=== PATIENT | male | born 2005 | race African-American/Black ===

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

== ENCOUNTER 2023-02-17 11:35 | Emergency (ER) | payer MEDICAID ==
[~2023-02-17] VITALS: Ht 170.2 cm; Wt 73.7 kg
[~2023-02-17 11:35] MED LIST changes: +HYDR-4902 PO; +IBUP-1454 PO; -IBUP600T27 PO; +LEVO500T31 PO; +METR500T PO; -OMEP-263 PO; +OMEP-448 PO
[2023-02-17 11:46] VITALS: BP 108/69
[2023-02-17] MEDS ORDERED: SODIUM CHLORIDE 0.9% 1,000 ML IV ONE (12:00)
[2023-02-17] MEDS ORDERED: PROCHLORPERAZINE EDISYLATE 5 MG/ML 2ML VIAL IV ONE (12:00)
[2023-02-17] MEDS ORDERED: PANT40TA2 PO (12:12)
[2023-02-17 12:15] LABS: Basophils # (auto) 0.1 10 ^3/uL (0-0.2); Hemoglobin 11.7 g/dL (13.5-17.5); Monocytes # (auto) 1.4 10 ^3/uL (0-1.3)
[2023-02-17 12:17] LABS: Basophils % (auto) 0.6 % (0.0-2.0); Eosinophils # (auto) 0.9 10 ^3/uL (0-0.8); Eosinophils % (auto) 5.2 % (0.0-7.0); Hematocrit 36.8 % (41.0-53.0); Lymphocytes # (auto) 1.8 10 ^3/uL (0.4-5.4); Mean Corpuscular Hemoglobin 25.4 pg (28.0-32.0); Mean Corpuscular Hgb Conc. 31.7 g/dL (32.0-36.0); Mean Corpuscular Volume 80.1 fL (80.0-100.0); Neutrophils # (auto) 13.6 10 ^3/uL (1.6-8.6); Neutrophils % (auto) 76.2 % (37.0-80.0); Red Cell Distribution Width 14.1 % (11.8-14.3); White Blood Cell 17.8 10^3/uL (4.4-10.8)
[2023-02-17 12:43] LABS: Albumin 3.8 g/dL (3.4-5.0); Calcium 8.7 mg/dL (8.5-10.1); Potassium 4.1 mmol/L (3.5-5.1)
[2023-02-17 12:46] LABS: BUN/Creatinine Ratio 11.1 (10.0-20.0); Bilirubin, Total 0.3 mg/dL (0.2-1.0); Total Protein 7.5 g/dL (6.4-8.2)
== END 2023-02-17 12:29 | disposition left against medical advice (07) ==
LOC: ER 11:35
DX: K29.00 Acute gastritis without bleeding (principal)
CPT/HCPCS: 36415; 80053; 85025; 96361; 96374; 99283; J0780; J7030

== ENCOUNTER 2024-08-16 04:57 | Emergency (ER) | payer MEDICAID ==
[~2024-08-16] VITALS: Ht 170.2 cm; Wt 180.0 kg
[~2024-08-16 04:57] MED LIST changes: +PANT40TA2 PO
[2024-08-16] MEDS: methylPREDNISolone SOD SUCC 125 MG/2 ML VL IM ONE (06:04)
[2024-08-16 06:08] VITALS: BP 113/62; PULSE 88; RESP 18; O2SAT 94
[2024-08-16 06:09] VITALS: RESP 16; O2SAT 100
[2024-08-16] MEDS: IPRATROPIUM BROM 0.5 MG/2.5ML INH SOL NEB ONE (06:09)
[2024-08-16] MEDS: ALBUTEROL SULF 2.5 MG/0.5ML(0.5%) NEB SOLN NEB ONE (06:09)
== END 2024-08-16 09:22 | disposition left against medical advice (07) ==
LOC: EDBD 04:57 → ER 04:57
DX: R06.02 Shortness of breath (principal); Z53.21 Procedure and treatment not carried out due to patient leaving prior to being seen by health care provider
CPT/HCPCS: 94640; J2919

== ENCOUNTER 2024-11-29 12:31 | Emergency (ER) | payer MEDICAID, OTHER ==
[~2024-11-29] VITALS: Ht 165.1 cm; Wt 72.5 kg
[2024-11-29 12:49] VITALS: BP 138/62; TEMP 98.2
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
[2024-11-29 13:51] VITALS: PULSE 64; RESP 15; O2SAT 98
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
== END 2024-11-29 14:06 | disposition home or self-care (01) ==
LOC: ER 12:31
DX: S33.5XXA Sprain of ligaments of lumbar spine, initial encounter (principal); J45.909 Unspecified asthma, uncomplicated; F12.90 Cannabis use, unspecified, uncomplicated; Z87.891 Personal history of nicotine dependence; Z90.49 Acquired absence of other specified parts of digestive tract; Z79.52 Long term (current) use of systemic steroids; Z79.899 Other long term (current) drug therapy; V43.62XA Car passenger injured in collision with other type car in traffic accident, initial encounter; Y93.84 Activity, sleeping; Y92.89 Other specified places as the place of occurrence of the external cause; Y99.8 Other external cause status
CPT/HCPCS: 72100

== ENCOUNTER 2024-12-03 13:40 | Emergency (ER) | payer MEDICAID, OTHER ==
[~2024-12-03] VITALS: Ht 165.1 cm; Wt 71.5 kg
[2024-12-03 15:20] VITALS: BP 114/50; PULSE 83; RESP 18; TEMP 98.4; O2SAT 98
[2024-12-03] MEDS ORDERED: BACL10TA PO (15:45)
[2024-12-03] MEDS ORDERED: IBUP-1454 PO (15:45)
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
== END 2024-12-03 15:54 | disposition home or self-care (01) ==
LOC: ER 13:53
DX: S39.012A Strain of muscle, fascia and tendon of lower back, initial encounter (principal); J45.909 Unspecified asthma, uncomplicated; Z90.49 Acquired absence of other specified parts of digestive tract; Z79.899 Other long term (current) drug therapy; V89.2XXA Person injured in unspecified motor-vehicle accident, traffic, initial encounter; Y93.I9 Activity, other involving external motion; Y92.488 Other paved roadways as the place of occurrence of the external cause; Y99.8 Other external cause status

== ENCOUNTER 2025-01-08 19:13 | Emergency (ER) | payer MEDICAID ==
[~2025-01-08] VITALS: Ht 170.2 cm; Wt 78.7 kg
[~2025-01-08 19:13] MED LIST changes: +BACL10TA PO
[2025-01-08 19:25] VITALS: BP 121/64; PULSE 74; RESP 18; TEMP 97.7; O2SAT 99
--- NOTE | 2025-01-08 19:30 | ED.PDOC ---
GI ASSESSMENT HPI Comments 19-year-old male who came to ER for GI bleed. Patient states for the past 3 days he has been having intermittent episodes of periumbilical abdominal pain, associated with nausea and vomiting, and passage of blackish stools. Patient had a similar episode of blackish stools 2 years ago, and was diagnosed of gabby endicitis then, status post appendectomy, November 2022. Chief Complaint: GI bleed Time Seen by MD: 19:29 Primary Care Provider: unknown Reviewed Notes: Nurses Notes Allergies: Coded Allergies: NO KNOWN ALLERGIES (Unverified , 07/22/18) Home Meds Active Scripts Baclofen (Baclofen) 10 Mg Tab, 10 MG PO BID, #20 TAB Prov:BELLA GARCIA 12/03/24 Ibuprofen (Ibuprofen) 600 Mg Tab, 1 TAB PO TID, #30 TAB Prov:BELLA GARCIA 12/03/24 Pantoprazole Sodium Sesquihydr (Protonix) 40 Mg Tab, 40 MG PO DAILY for 10 Days, #10 TAB Prov:SANAZ BERRIOS MD 02/17/23 Hydrocodone-Acetaminophen (Hydrocodone Bitartrate/AC 5-325 mg) 1 Tab Tab, 1 TAB PO TID PRN, #20 TAB Prov:ROMINA SÁNCHEZ MD 11/17/22 Metronidazole (Flagyl) 500 Mg Tab, 500 MG PO TID, #21 TAB Prov:ROMINA SÁNCHEZ MD 11/17/22 Levofloxacin (Levaquin) 500 Mg Tab, 500 MG PO DAILY, #10 TAB Prov:ROMINA SÁNCHEZ MD 11/17/22 Aluminum Hydroxide-Mag Carb (Gaviscon Extra Strength) 1 Chw Chw, 1 CHW PO QID for 10 Days, #40 TAB.CHEW Prov:ISABEL DUBON MD 08/11/22 Omeprazole (Omeprazole Dr) 40 Mg Cap, 40 MG PO DAILY for 10 Days, #10 CAP Prov:ISABEL DUBON MD 08/11/22 Metoclopramide Hcl (Reglan) 10 Mg Tab, 10 MG PO BID for 7 Days, #14 TAB Prov:ISABEL DUBON MD 08/11/22 Ibuprofen (Ibuprofen) 600 Mg Tab, 1 TAB PO QID, #30 TAB Prov:BELLA GARCIA 08/09/22 Prednisone (Prednisone) 20 Mg Tab, 60 MG PO DAILY, #15 MG Prov:BELLA GARCIA 08/09/22 Penicillin V Potassium (Veetids) 500 Mg Tab, 1 TAB PO QID, #28 TAB Prov:BELLA GARCIA 08/09/22 Prednisone (Prednisone) 20 Mg Tab, 20 MG PO BID for 5 Days, #10 TAB 0 Refills Prov:CIARA PELAYO 08/03/22 Albuterol Sulfate (VENTOLIN MDI) 90 Mcg Ih, 90 MCG IN PRN PRN, #1 INH 0 Refills 2 inhalations every 4 to 6 hours as needed Prov:CIARA PELAYO 08/03/22 Information Source: Patient Mode of Arrival: Ambulatory Timing: Days Duration: Intermittent Prehospital treatment: None Quality: Aching Vomitus: Watery Stool: Black Severity: Moderate Recent: None Recent Hx of: Abdominal Surgery Pain Location: Periumbilical Modifying Factors: Nothing Associated sign and symptoms: Nausea, Vomiting, Melena, Abdominal Pain Past Medical History PAST MEDICAL HISTORY: Asthma Surgical History: Appendectomy Family History Family History: Reviewed,noncontributory to illness Social History Smoker: Quit Less Than 1 Year, Other Alcohol: Occasionally Drugs: Marijuana Lives In: Home Constitutional: denies: chills, diaphoresis, fatigue, fever, malaise, sweats, weakness, others EENTM: denies: blurred vision, double vision, ear bleeding, ear discharge, ear drainage, ear pain, ear ringing, eye pain, eye redness, hearing loss, mouth pain, mouth swelling, nasal discharge, nose bleeding, nose congestion, nose pain, photophobia, tearing, throat pain, throat swelling, voice changes, others Respiratory: denies: cough, hemoptysis, orthopnea, SOB at rest, shortness of breath, SOB with excertion, stridor, wheezing, others Cardiovascular: denies: chest pain, dizzy spells, diaphoresis, Dyspnea on exertion, edema, irregular heart beat, left arm pain, lightheadedness, palpitations, PND, syncope, others Gastrointestinal: reports: abdominal pain, melena, nausea, vomiting; denies: abdomen distended, blood streaked bowels, constipated, diarrhea, dysphagia, difficulty swallowing, hematemesis, poor appetite, poor fluid intake, rectal bleeding, rectal pain, others Genitourinary: denies: burning, dysuria, flank pain, frequency, hematuria, incontinence, penile discharge, penile sore, pain, testicle pain, testicle swelling, urgency, others Neurological: denies: dizziness, fainting, headache, left sided numbness, left sided weakness, numbness, paresthesia, pre-existing deficit, right sided numbness, right sided weakness, seizure, speech problems, tingling, tremors, weakness, others Musculoskeletal: denies: back pain, gout, joint pain, joint swelling, muscle pain, muscle stiffness, neck pain, others Integumetry: denies: bruises, change in color, change in hair/nails, dryness, laceration, lesions, lumps, rash, wounds, others Allergic/Immunocompromised: denies: Difficulty Healing, Frequent Infections, Hives, Itching, others Hematologic/Lymphatic: denies: anemia, blood clots, easy bleeding, easy bruising, swollen glands, others Endocrine: denies: excessive hunger, excessive sweating, excessive thirst, excessive urination, flushing, intolerance to cold, intolerance to heat, unexplained weight gain, unexplained weight loss, others Psychiatric: denies: anxiety, bipolar disorder, depression, hopeless, panic disorder, schizophrenia, sleepless, suicidal, others Physical Exam General Appearance: No Apparent Distress, Normal HEENT: Normal ENT Inspection, Pharynx Normal, TMs Normal Neck: Full Range of Motion, Non-Tender, Normal, Normal Inspection Respiratory: Chest Non-Tender, Lungs Clear, No Accessory Muscle Use, No Respiratory Distress, Normal Breath Sounds Cardiovascular: No Edema, No JVD, No Murmur, No Gallop, Normal Peripheral Pulses, Regular Rate/Rhythm Breast Exam: Deferred Gastrointestinal: No Organomegaly, No Pulsatile Mass, Normal Bowel Sounds, Soft, Tenderness Genitalia: Deferred Pelvic: Deferred Rectal: Deferred Extremities: No calf tenderness, Normal capillary refill, Normal inspection, Normal range of motion, Non-tender, No pedal edema Musculoskeletal : Apperance: Normal 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 Was a procedure done?: No GI differential Dx Differential Diagnosis: Constipation, Diverticular disease, Gastritis/PUD, Gastroenteritis, GI hemorrhage, Anemia X-Ray, Labs, Meds, VS Vital Signs Date Time Temp Pulse Resp B/P (MAP) Pulse Ox O2 Delivery O2 Flow Rate FiO2 01/08/25 19:25 97.7 74 18 121/64 (83) 99 97.7 Lab Test 01/08/25 19:41 Range/Units White Blood Count 10.9 H 4.4-10.8 10^3/uL Red Blood Count 4.89 4.5-5.90 10^6/uL Hemoglobin 8.5 L 13.5-17.5 g/dL Hematocrit 28.7 L 41.0-53.0 % Mean Corpuscular Volume 58.7 L 80.0-100.0 fL Mean Corpuscular Hemoglobin 17.3 L 28.0-32.0 pg Mean Corpuscular Hemoglobin Concent 29.5 L 32.0-36.0 g/dL Red Cell Distribution Width 19.0 H 11.8-14.3 % Platelet Count 538 H 140-450 10^3/uL Mean Platelet Volume 8.3 6.9-10.8 fL Neutrophils (%) (Auto) 45.8 37.0-80.0 % Lymphocytes (%) (Auto) 33.8 10.0-50.0 % Monocytes (%) (Auto) 5.5 0.0-12.0 % Eosinophils (%) (Auto) 13.7 H 0.0-7.0 % Basophils (%) (Auto) 1.2 0.0-2.0 % Neutrophils # (Auto) 5.0 1.6-8.6 10 ^3/uL Lymphocytes # (Auto) 3.7 0.4-5.4 10 ^3/uL Monocytes # (Auto) 0.6 0-1.3 10 ^3/uL Eosinophils # (Auto) 1.5 H 0-0.8 10 ^3/uL Basophils # (Auto) 0.1 0-0.2 10 ^3/uL Nucleated Red Blood Cells 0.1 % Platelet Estimate Increased Hypochromasia (manual) Marked Microcytosis Marked Sodium Level 143 136-145 mmol/L Potassium Level 3.6 3.5-5.1 mmol/L Chloride Level 112 H 98-107 mmol/L Carbon Dioxide Level 23 20-31 mmol/L Anion Gap 8 5-15 Blood Urea Nitrogen 15 9-23 mg/dL Creatinine 1.16 0.700-1.30 mg/dL Glomerular Filtration Rate Calc 92 >90 mL/min BUN/Creatinine Ratio 12.9 10.0-20.0 Serum Glucose 90 74-106 mg/dL Calcium Level 10.2 8.7-10.4 mg/dL Exam: CT CT AB PEL WITH IV CON ONLY History: black stool Comparison Study: CT AB PEL WITH IV CON ONLY on DOS: 08/11/22 TECHNIQUE: Multidetector CT of the abdomen was performed from lung bases to pubic symphysis. Imaging was performed without IV contrast. Axial, coronal and sagittal multiplanar reformats were obtained from the axial data set by the technologist. Radiation Dose Information: CT Dose: CTDI volume is 7.42 mGy. Dose-length product is 425.1 mGy*cm FINDINGS: Tree-in-bud opacities of the right lower lobe. Partially visualized heart is unremarkable. Liver, spleen, gallbladder, pancreas and adrenal glands unremarkable. Kidneys, ureters and urinary bladder unremarkable. Prostate is unremarkable. Wall thickening of the distal esophagus. Stomach is otherwise unremarkable. Small bowel loops unremarkable. Appendix is not definitely visualized. Question appendectomy. Large bowel is unremarkable. No evidence of intraperitoneal free air or free fluid. No evidence of aortic aneurysm or dissection. No significant lymphadenopathy. Soft tissues are unremarkable. No destructive osseous lesions are noted. IMPRESSION: Mild wall thickening of the distal esophagus. Correlate for esophagitis. Tree-in-bud opacities of the right lower lobe. Correlate for infectious bronchiolitis. Time of 1ST Reevaluation: 19:25 Reevaluation 1ST: Unchanged Patient Education/Counseling: Diagnosis, Treatment Family Education/Counseling: No Family Present Departure 1 Departure Time of Disposition: 22:07 (Patient presented with abdominal pain and black stool that was concerning for possible appendicits, gastritis, cholecystitis, colitis, gastroenteritis, sbo, or orther possible surgical emergency. Data: 1. I ordered and reviewed the result of at least 3 labs including a CBC, BMP, and Urinalysis. 2. I independently interpreted the following tests: CT Abdoment and Pelvis is concerning for colitis and bronchiolitis .Risk:This patient has a high risk of morbidity due to further diagnostic testing or treatment and may suffer from an acute abdominal process disorder. Workup reveals concern for GI bleed and patient should be admitted for further workup. and possible expert consultation. ) Impression: Primary Impression: Melena Additional Impression: Symptomatic anemia Disposition: ADMITTED INPATIENT Admit to: Med Surg Condition: Serious Critical Care Note Critical Care Time?: Yes Critical care comment: Concern for GI bleed Authorized and Performed by: Suleiman Burr MD Total critical care time: Approximately 39 minutes Due to a high probability of clinically significant, life threatening deterioration, the patient required my highest level of preparedness to intervene emergently and I personally spent this critical care time directly and personally managing the patient. This critical care time included obtaining a history; examining the patient; pulse oximetry; ordering and review of studies; arranging urgent treatment with development of a management plan; evaluation of patient's response to treatment; frequent reassessment; and, discussions with other providers. This critical care time was performed to assess and manage the high probability of imminent, life-threatening deterioration that could result in multi-organ failure. It was exclusive of separately billable procedures and treating other patients and teaching time. Please see my other sections and the rest of the note for further information on patient assessment and treatment. Stability Stability form required: No Heart Score Heart Score: Heart Score Response (Comments) Value History N/A 0 EKG N/A 0 Age N/A 0 Risk Factors N/A 0 Troponin N/A 0 Total 0 I personally scribed for SULEIMAN BURR MD ([facility]) on 01/08/25 at 19:30. Electronically submitted by Natanael Burgos ([email or web address]). I personally scribed for SULEIMAN BURR MD ([facility]) on 01/08/25 at 21:55. Electronically submitted by Natanael Burgos ([email or web address]). SULEIMAN BURR MD January 08, 2025 19:30
[2025-01-08] MEDS ORDERED: PANTOPRAZOLE 40 MG/10 ML VIAL INJ IV ONE (19:45)
[2025-01-08] MEDS ORDERED: SODIUM CHLORIDE 0.9% 1,000 ML IV ONE (19:45)
[2025-01-08] MEDS ORDERED: ONDANSETRON HCL 4 MG/2 ML VIAL IV ONE (19:45)
[2025-01-08 20:07] LABS: Potassium 3.6 mmol/L (3.5-5.1); Sodium 143 mmol/L (136-145)
[2025-01-08 20:08] LABS: Anion Gap 8 (5-15); Carbon Dioxide 23 mmol/L (20-31)
[2025-01-08 20:09] LABS: Calcium 10.2 mg/dL (8.7-10.4); Chloride 112 mmol/L (98-107)
[2025-01-08 20:14] LABS: BUN/Creatinine Ratio 12.9 (10.0-20.0); Blood Urea Nitrogen 15 mg/dL (9-23); Glucose 90 mg/dL (74-106)
[2025-01-08 20:22] LABS: Basophils # (auto) 0.1 10 ^3/uL (0-0.2); Hematocrit 28.7 % (41.0-53.0); Hemoglobin 8.5 g/dL (13.5-17.5); Nucleated Red Blood Cells % 0.1 %
[2025-01-08 20:24] LABS: Basophils % (auto) 1.2 % (0.0-2.0); Eosinophils # (auto) 1.5 10 ^3/uL (0-0.8); Eosinophils % (auto) 13.7 % (0.0-7.0); Lymphocytes # (auto) 3.7 10 ^3/uL (0.4-5.4); Lymphocytes % (auto) 33.8 % (10.0-50.0); Mean Corpuscular Hemoglobin 17.3 pg (28.0-32.0); Mean Corpuscular Hgb Conc. 29.5 g/dL (32.0-36.0); Mean Corpuscular Volume 58.7 fL (80.0-100.0); Monocytes # (auto) 0.6 10 ^3/uL (0-1.3); Monocytes % (auto) 5.5 % (0.0-12.0); Neutrophils % (auto) 45.8 % (37.0-80.0); Platelet Count (auto) 538 10^3/uL (140-450); Red Blood Cells 4.89 10^6/uL (4.5-5.90); White Blood Cell 10.9 10^3/uL (4.4-10.8)
[2025-01-08] MEDS ORDERED: IOHEXOL 300 MG/ML 100ML BOTTLE IJ ONE (20:39)
[2025-01-08 20:45] LABS: Hypochromia Marked; Platelet Estimate Increased
--- NOTE | 2025-01-08 21:21 | DVH ---
Exam: CT CT AB PEL WITH IV CON ONLY History: black stool Comparison Study: CT AB PEL WITH IV CON ONLY on DOS: 08/11/22 TECHNIQUE: Multidetector CT of the abdomen was performed from lung bases to pubic symphysis. Imaging was performed without IV contrast. Axial, coronal and sagittal multiplanar reformats were obtained fr om the axial data set by the technologist. Radiation Dose Information: CT Dose: CTDI volume is 7.42 mGy. Dose-length product is 425.1 mGy*cm FINDINGS: Tree-in-bud opacities of the right lower lobe. Partially visualized heart is unremarkable. Liver, spleen, gallbladder, pancreas and adrenal glands unremarkable. Kidneys, ureters and urinary bladder unremarkable. Prostate is unremarkable. Wall thickening of the distal esophagus. Stomach is otherwise unremarkable. Small bowel loops unremar kable. Appendix is not definitely visualized. Question appendectomy. Large bowel is unremarkable. No evidence of intraperitoneal free air or free fluid. No evidence of aortic aneurysm or dissection. No significant lymphadenopathy. Soft tissues are unremarkable. No destructive osseous lesions are noted. IMPRESSION: Mild wall thickening of the distal esophagus. Correlate for esophagitis. Tree-in-bud opacities of the right lower lobe. Correlate for infectious bronchiolitis.
== END 2025-01-08 23:50 | disposition left against medical advice (07) ==
LOC: ER 19:15
DX: D64.9 Anemia, unspecified (principal); K92.1 Melena; J45.909 Unspecified asthma, uncomplicated; Z90.49 Acquired absence of other specified parts of digestive tract; Z79.899 Other long term (current) drug therapy
CPT/HCPCS: 36415; 74177; 80048; 85025; 99291; Q9967